=== PATIENT | male | born 1940 | race Caucasian/White ===

== ENCOUNTER 2018-09-05 07:19 | Day surgery (SDC) | payer OTHER ==
--- NOTE | 2018-09-01 08:36 | EKG ---
Test Date: 2018-09-01 Test Time: 08:21:45 Embroidery Assistant: TRIP MEASUREMENT RESULTS: Intervals: Rate: 57 IN: 192 QRSD: 84 QT: 428 QTc: 416 Ebony: P: 37 IN: 192 QRS: 21 T: 25 INTERPRETIVE STATEMENTS: Sinus bradycardia Otherwise normal ECG No previous ECG available for comparison Electronically Signed On 09-01-18 08:36:17 CDT by Sebastian Walker
[2018-09-01 09:35] LABS: Absolute Lymphocytes (CBC) 1.5 K/uL (0.7-4.9); Absolute Monocytes 0.5 K/uL (0.1-1.3); Absolute Neutrophil 3.3 K/uL (1.8-8.0); Basophils % 0.5 % (0-1.3); Eosinophils % 1.6 % (0-4.4); Hematocrit 43.3 % (39.6-49.0); Lymphocytes % 27.9 % (15.3-44.8); MPV 8.7 fL (7.6-11.3); Monocytes % 8.7 % (3.3-12.3); RBC Red Blood Cell Count 4.89 M/uL (4.33-5.43)
[2018-09-01 09:51] LABS: Potassium 4.3 mmol/L (3.5-5.1)
[2018-09-05] MEDS ORDERED: Ringers Lactate 1,000 ML IV ONE (07:45)
[2018-09-05] MEDS ORDERED: CEFAZOLIN/SWI 1gm 1 GM/10 ML SYR ONE (07:46)
[2018-09-05] MEDS ORDERED: PROPOFOL 200 MG/20 ML VIAL IV ONE (08:23)
[2018-09-05] MEDS ORDERED: MIDAZOLAM HCL 2 MG/2 ML INJ ONE (08:24)
[2018-09-05] MEDS ORDERED: GLYCOPYRROLATE 0.2 MG/ML SYR ONE ×2 (08:24)
[2018-09-05] MEDS ORDERED: LIDOCAINE 2% MPF 5 ML VIAL ONE (08:24)
[2018-09-05] MEDS ORDERED: FENTANYL CITR 250 MCG/5 ML ONE (08:25)
[2018-09-05] MEDS ORDERED: ROCURONIUM 50 MG/5 ML VIAL IV ONE (08:25)
[2018-09-05] MEDS ORDERED: NEOSTIGMINE 1 MG/ML -10 ML VIAL ONE (08:26)
[2018-09-05] MEDS: BUPIVACA 0.25%/EPI 0.0005% MDV 50 ML VIAL ONE ×2 (08:45→08:52)
[2018-09-05] MEDS: Ringers Lactate 1,000 ML IV ONE ×2 (09:13→09:49)
[2018-09-05] MEDS ORDERED: EPHEDRINE SULF 50 MG/ML VIAL ONE (09:18)
[2018-09-05] MEDS ORDERED: ONDANSETRON 4 MG/2 ML VIAL ONE (09:18)
--- NOTE | 2018-09-05 10:13 | P.OP ---
Benefits Representative: PRAVEEN MAXWELL Preoperative diagnosis: LEFT Inguinal Hernia Postoperative diagnosis: LEFT Pantaloon Inguinal Hernia Primary procedure: Open LEFT inguinal hernia repair with mesh Anesthesia: GETA + Local Estimated blood loss: <2cc Specimen: Hernia sack, cord lipoma Findings: Direct / Indirect hernia, external oblique aponeurosis thin Complications: None Implants: Medium Bard Plug and Patch Transferred to: Recovery Room Condition: Good
[2018-09-05] MEDS: HYDROMORPHONE HCL 1 MG/ML INJ ONE ×2 (10:36→10:42)
[2018-09-05] MEDS ORDERED: HYDROCODONE/APAP 7.5/325 MG TAB ONE (11:40)
--- NOTE | 2018-09-05 20:46 | OP ---
Date of Procedure: 09/05/2018 Surgeon: Willis Jon MD, Air Chipper: Colette Rodrigez. Preoperative Diagnosis: Left inguinal hernia. Postoperative Diagnosis: Left pantaloon inguinal hernia. Procedure: Open left inguinal hernia repair with mesh, plug and patch system utilized. Anesthesia: General endotracheal plus local with 0.25% Marcaine with epinephrine. Estimated Fluid Loss: Less than 2 cc. Specimen: Hernia sac and cord lipoma. Findings: 1.Direct and indirect inguinal hernias. 2.External oblique aponeurosis was thin and friable and was essentially obliterated by this hernia. Complications: None. Implants: Medium Bard plug and patch hernia repair system. Disposition: Transferred to recovery room in good condition. Procedure In Detail: After informed consent was obtained, the patient was brought to the operating r oom, prepped and draped in the usual sterile fashion. After adequate anesthesia was achieved, an inc ision was made over the left inguinal region, down through subcutaneous skin and then into the dermal plane. I then dissected down through Camper's fascia and Rosario's fascia using electrocautery to di ssect down to the level of the spermatic cord. The spermatic cord was encircled along the pubic tube rcle. When the spermatic cord was mobilized off the fascial plane, dissection continued down to the deep inguinal ring. The spermatic cord was examined at this time and a cord lipoma was appreciated o n this. This was dissected free of the spermatic cord and structures and sent off for pathologic exa mination. The hernia sac was noted to be coming from medial aspect. Further inspection showed that there was both a direct and indirect inguinal hernia pantaloon type with respect to the epigastric ve ssels. This was 2 hernia type defect. As such both the hernias were dissected free from surrounding structures, returned to the normal anatomic position and the indirect inguinal hernia was repaired w ith a Bard PerFix medium plug placed into the preperitoneal space after opening the hernia defect and sending off a piece of the hernia sac for pathologic examination. This was secured circumferentiall y with a simple 0 PDS suture with good approximation. The hernia sac was then reapproximated over th e top of the patch with a 3-0 Vicryl in a running fashion. The area was copiously irrigated at this time and the medium PerFix patch was then brought on to the field as the hernia sacs were both reduce d to the normal anatomic position. At this point, this mesh was sized appropriately, secured to the pubic tubercle on the medial aspect and then to the conjoined tendon and medial lateral shelving edge s and reconstituting the deep inguinal ring after sizing the mesh appropriately. The medial aspect w as the lateral rectus border and it was secured using the interrupted 0 PDS suture as well. After th is was completed, the area was copiously irrigated multiple times until completely clear. The sourcing assistant al oblique aponeurosis was essentially obliterated and found to be quite thin, friable. However, I c losed Rosario's fascia and the external oblique aponeurosis on block over the top of the spermatic cor d structures after irrigating and drying the area appropriately. Good hemostasis was achieved withou t any additional hemostatic maneuvers. The Camper's fat was then reapproximated with 3-0 Vicryl in i nterrupted fashion as well and skin was closed with a 4-0 Monocryl in a running fashion. Dermabond w as placed over the top. The patient tolerated the procedure well without evidence of complication an d transferred to PACU in good condition. All counts were correct at the end of the case. KALA/ZAC Voice ID: [id number] Report ID: [id number]
== END 2018-09-05 12:40 | disposition home or self-care (01) ==
LOC: OR 07:19
PROVIDERS: ATTEND Surgery
PROC: 0YU60JZ Supplement Left Inguinal Region with Synthetic Substitute, Open Approach (ICD-10-PCS; principal; 2018-09-05 08:30)
DX: K40.90 Unilateral inguinal hernia, without obstruction or gangrene, not specified as recurrent (principal); D17.6 Benign lipomatous neoplasm of spermatic cord; I10 Essential (primary) hypertension; Z79.899 Other long term (current) drug therapy
CPT/HCPCS: 49505; 93005; 85025; 80048; 36415; 88302; J2704; J2710; J2250; J3010; J1170; J0690; J2405

== ENCOUNTER 2018-11-05 12:14 | Emergency (ER) | payer OTHER ==
--- NOTE | 2018-11-05 13:05 | ER ---
Nurse's Notes [facility] Name: Akash Varela Age: 78 yrs Sex: Male : 1940 Arrival Date: 11/05/2018 Time: 12:16 Bed 4 Private MD: Diagnosis: Hypertension Presentation: 11/05 12:21 Presenting complaint: Patient states: "My blood pressure was 180/104" Patient reports aj1 some light headedness when he stands. Denies any other symptoms at this time. Transition of care: patient was not received from another setting of care. Onset of symptoms was November 05, 2018. Risk Assessment: Do you want to hurt yourself or someone else? Patient reports no desire to harm self or others. Initial Sepsis Screen: Does the patient meet any 2 criteria? No. Patient's initial sepsis screen is negative. Does the patient have a suspected source of infection? No. Patient's initial sepsis screen is negative. Care prior to arrival: None. 12:21 Method Of Arrival: Ambulatory aj1 12:21 Acuity: BEATA 3 aj1 Triage Assessment: 12:24 General: Appears in no apparent distress. comfortable, Behavior is calm, cooperative, aj1 appropriate for age. Pain: Denies pain. Neuro: Level of Consciousness is awake, alert, obeys commands. Cardiovascular: Patient's skin is warm and dry. Respiratory: Airway is patent Respiratory effort is even, unlabored, Respiratory pattern is regular, symmetrical. Historical: - Allergies: 12:24 No Known Allergies; aj1 - Home Meds: 12:24 lisinopril 20 mg Oral tab 1 tab once daily [Active]; atenolol 25 mg Oral tab 1 tab once aj1 daily [Active]; - PMHx: 12:24 Hypertension; Hyperlipidemia; aj1 - Immunization history:: Flu vaccine is up to date. - Social history:: Smoking status: Patient/guardian denies using tobacco. - Ebola Screening: : Patient denies travel to an Ebola-affected area in the 21 days before illness onset. - Family history:: not pertinent. - Hospitalizations: : No recent hospitalization is reported. Screenin:44 Abuse screen: Denies threats or abuse. Denies injuries from another. Nutritional sv screening: No deficits noted. Tuberculosis screening: No symptoms or risk factors identified. Fall Risk None identified. Assessment: 12:45 General: Appears in no apparent distress. comfortable, well groomed, well developed, sv Behavior is calm, cooperative, appropriate for age. Pain: Denies pain. Neuro: Level of Consciousness is awake, alert, obeys commands, Oriented to person, place, time, situation, Moves all extremities. Full function Gait is steady, Speech is normal, Facial symmetry appears normal. Cardiovascular: Denies chest pain. Respiratory: Airway is patent Respiratory effort is even, unlabored, Respiratory pattern is regular, symmetrical. Respiratory: Denies shortness of breath. Derm: Skin is pink, warm \\T\\ dry. Vital Signs: 12:24 BP 198 / 100; Pulse 72; Resp 18; Temp 98.3; Pulse Ox 98% on R/A; Weight 83.91 kg (R); aj1 Height 5 ft. 11 in. (180.34 cm) (R); Pain 0/10; 12:48 BP 195 / 96; Pulse 59; Resp 16; sv 12:24 Body Mass Index 25.80 (83.91 kg, 180.34 cm) aj1 ED Course: 12:16 Patient arrived in ED. as 12:22 Triage completed. aj1 12:24 Arm band placed on Patient placed in an exam room. aj1 12:26 Valeriy Hanks MD is Attending Physician. rn 12:44 Karolyn Greene RN is Primary Nurse. sv 12:44 Patient has correct armband on for positive identification. Bed in low position. sv 13:09 No provider procedures requiring assistance completed. Patient did not have IV access sv during this emergency room visit. Administered Medications: No medications were administered Outcome: 13:04 Discharge ordered by MD. rn 13:10 Discharged to home ambulatory, with family. sv 13:10 Condition: stable 13:10 Discharge instructions given to patient, family, Instructed on discharge instructions, follow up and referral plans. instructed to keep a BP log and bring it to f/u visit with PCP. Demonstrated understanding of instructions, follow-up care. 13:10 Patient left the ED. sv Signatures: Loida Arriaga RN RN aj1 Karolyn Greene, Santa Garcia RN, Roman, MD MD rn
--- NOTE | 2018-11-05 13:06 | EDPHYS ---
Physician Documentation [facility] Name: Akash Varela Age: 78 yrs Sex: Male : 1940 Arrival Date: 11/05/2018 Time: 12:16 Bed 4 Private MD: ED Physician Valeriy Hanks HPI: 11/05 12:49 This 78 yrs old Male presents to ER via Ambulatory with complaints of High rn Blood Pressure. 12:49 The patient has elevated blood pressure and discovered this at home. Onset: The rn symptoms/episode began/occurred at an unknown time. Modifying factors: The symptoms are aggravated by discontinuation of meds. Severity of symptoms: At its worst the blood pressure was moderate, in the emergency department the blood pressure is improved. The patient has experienced similar episodes in the past. The patient has been recently seen by a physician:. Just saw pcp 1 week ago, his medication were changed, atenolol halved and lisinopril doubled, since then has noticed higher then normal BP, but today was just checking BP to check and noted diastolic was > 100, otherwise feels ok, asymptomatic, no focal neurological complaints, no headache or vision changes, no chest pain. Here because didn't know if he needed to do anything.. Historical: - Allergies: 12:24 No Known Allergies; aj1 - Home Meds: 12:24 lisinopril 20 mg Oral tab 1 tab once daily [Active]; atenolol 25 mg Oral tab 1 tab once aj1 daily [Active]; - PMHx: 12:24 Hypertension; Hyperlipidemia; aj1 - Immunization history:: Flu vaccine is up to date. - Social history:: Smoking status: Patient/guardian denies using tobacco. - Ebola Screening: : Patient denies travel to an Ebola-affected area in the 21 days before illness onset. - Family history:: not pertinent. - Hospitalizations: : No recent hospitalization is reported. ROS: 13:00 Constitutional: Negative for fever, chills, and weight loss, Eyes: Negative for injury, rn pain, redness, and discharge, Neck: Negative for injury, pain, and swelling, Cardiovascular: Negative for chest pain, palpitations, and edema, Respiratory: Negative for shortness of breath, cough, wheezing, and pleuritic chest pain, Abdomen/GI: Negative for abdominal pain, nausea, vomiting, diarrhea, and constipation, MS/Extremity: Negative for injury and deformity, Skin: Negative for injury, rash, and discoloration, Neuro: Negative for headache, weakness, numbness, tingling, and seizure. Exam: 13:00 Constitutional: This is a well developed, well nourished patient who is awake, alert, rn and in no acute distress. Head/Face: Normocephalic, atraumatic. Eyes: Pupils equal round and reactive to light, extra-ocular motions intact. Lids and lashes normal. Conjunctiva and sclera are non-icteric and not injected. Cornea within normal limits. Periorbital areas with no swelling, redness, or edema. Neck: Trachea midline, no thyromegaly or masses palpated, and no cervical lymphadenopathy. Supple, full range of motion without nuchal rigidity, or vertebral point tenderness. No Meningismus. Cardiovascular: Regular rate and rhythm, no JVD. No pulse deficits. Respiratory: Lungs have equal breath sounds bilaterally, clear to auscultation. No increased work of breathing, no retractions or nasal flaring. Abdomen/GI: soft, non-tender MS/ Extremity: Pulses equal, no cyanosis. Neurovascular intact. Full, normal range of motion. Equal circumference. Neuro: Awake and alert, GCS 15, oriented to person, place, time, and situation. Cranial nerves II-XII grossly intact. Motor strength 5/5 in all extremities. Sensory grossly intact. Cerebellar exam normal. Normal gait. Vital Signs: 12:24 BP 198 / 100; Pulse 72; Resp 18; Temp 98.3; Pulse Ox 98% on R/A; Weight 83.91 kg (R); aj1 Height 5 ft. 11 in. (180.34 cm) (R); Pain 0/10; 12:48 BP 195 / 96; Pulse 59; Resp 16; sv 12:24 Body Mass Index 25.80 (83.91 kg, 180.34 cm) aj1 MDM: 12:26 Patient medically screened. rn 13:00 Differential diagnosis: hypertensive crisis, Malignant HTN, asymptomatic hypertension. rn Data reviewed: vital signs, nurses notes, and as a result, I will discharge patient. Counseling: I had a detailed discussion with the patient and/or guardian regarding: the historical points, exam findings, and any diagnostic results supporting the discharge/admit diagnosis, the need for outpatient follow up, to return to the emergency department if symptoms worsen or persist or if there are any questions or concerns that arise at home. Special discussion: I discussed with the patient/guardian in detail that at this point there is no indication for admission to the hospital. It is understood, however, that if the symptoms persist or worsen the patient needs to return immediately for re-evaluation. Based on the history and exam findings, there is no indication for further emergent testing or inpatient evaluation. I discussed with the patient/guardian the need to see the primary care provider for further evaluation of the symptoms. ED course: Recently changed BP meds, may need more time to get used to it, may still need changes to meds, offered ecg and bloodwork, patient declines after our long discussion about BP. He now requests to go home, states will monitor BP, understands return precautions, and otherwise will f/u with pcp on wednesday.. Administered Medications: No medications were administered Disposition: 11/05/18 13:04 Discharged to Home. Impression: Hypertension. - Condition is Stable. - Discharge Instructions: Hypertension, Managing Your Hypertension. - Medication Reconciliation Form, Thank You Letter, Antibiotic Education, Prescription Opioid Use form. - Follow up: Private Physician; When: 2 - 3 days; Reason: Recheck today's complaints, Re-evaluation by your physician. - Problem is an ongoing problem. - Symptoms have improved. Signatures: Loida Arriaga RN RN aj1 Karolyn Greene RN RN sv Valeriy Hanks MD MD international trade compliance manager: (The following items were deleted from the chart) 13:10 13:04 11/05/2018 13:04 Discharged to Home. Impression: Hypertension. Condition is sv Stable. Forms are Medication Reconciliation Form, Thank You Letter, Antibiotic Education, Prescription Opioid Use. Follow up: Private Physician; When: 2 - 3 days; Reason: Recheck today's complaints, Re-evaluation by your physician. Problem is an ongoing problem. Symptoms have improved. rn
== END 2018-11-05 13:10 | disposition home or self-care (01) ==
LOC: ER 12:14
DX: I10 Essential (primary) hypertension (principal); E78.5 Hyperlipidemia, unspecified
CPT/HCPCS: 99281